=== PATIENT | female | born 1990 | race Caucasian/White ===

== ENCOUNTER 2017-12-26 10:55 | Inpatient (IN) | payer MEDICAID ==
[~2017-12-26] VITALS: Ht 157.5 cm; Wt 67.0 kg
[~2017-12-26 10:55] MED LIST: DOCU240C31 PO; IBUP-1222 PO; OXYC-302 PO
[2017-12-26] MEDS ORDERED: OXYTOCIN 30U/ 0.9% NaCL 500ML 500 ML IV ONE (11:36)
[2017-12-26] MEDS ORDERED: D5%-LACTATED RINGERS 1,000 ML IV SCH (11:36)
[2017-12-26] MEDS ORDERED: OXYTOCIN 30U/ 0.9% NaCL 500ML 500 ML IV PRN (11:36)
[2017-12-26] MEDS ORDERED: LACTATED RINGERS 1,000 ML IV SCH ×2 (11:36→19:34)
[2017-12-26] MEDS ORDERED: TERBUTALINE 1 MG/ML, 1ML IVPush PRN (12:00)
[2017-12-26] MEDS ORDERED: CALCIUM CARBONATE 500 MG TAB.CHEW PO PRN (12:00)
[2017-12-26] MEDS ORDERED: PLEASE ENTER HEIGHT AND WEIGHT MC SCH (12:00)
[2017-12-26] MEDS ORDERED: FENTANYL PF 100 MCG/2ML IVPush PRN (12:00)
[2017-12-26] MEDS ORDERED: FENTANYL PF 100 MCG/2ML IV PRN (12:00)
[2017-12-26] MEDS ORDERED: MISOPROSTOL 25 MCG TABLET VG PRN (12:00)
[2017-12-26] MEDS ORDERED: ONDANSETRON 2MG/ML, 2ML IVPush PRN ×2 (12:00→20:00)
[2017-12-26] MEDS ORDERED: MISOPROSTOL 25 MCG TABLET ONE (12:01)
[2017-12-26] MEDS ORDERED: NEWBORN KIT ONE (12:01)
[2017-12-26] MEDS ORDERED: OXYTOCIN 30U/ 0.9% NaCL 500ML 500 ML ONE ×2 (12:01→23:09)
[2017-12-26] MEDS ORDERED: MISOPROSTOL 200 MCG TABLET ONE (12:01)
[2017-12-26 12:21] LABS: BASOPHILS # (AUTO) 0.05 x10^3/uL (0-0.1); BASOPHILS % (AUTO) 1 % (0-1); EOSINOPHILS # (AUTO) 0.16 x10^3/uL (0-0.4); EOSINOPHILS % (AUTO) 2 % (1-7); LYMPHOCYTES # (AUTO) 1.29 x10^3/uL (1-3.4); LYMPHOCYTES % (AUTO) 15 % (22-44); MD NO; MEAN CORPUSCULAR HEMOGLOBIN 31.6 pg (27.0-34.8); MEAN CORPUSCULAR HGB CONC 33.7 g/dL (32.4-35.8); MEAN CORPUSCULAR VOLUME 93.7 fL (80-100); MEAN PLATELET VOLUME 9.7 fL (7.4-10.4); MONOCYTES # (AUTO) 0.44 x10^3/uL (0.2-0.8); MONOCYTES % (AUTO) 5 % (2-9); NEUTROPHILS # (AUTO) 6.72 x10^3/uL (1.8-6.8); NEUTROPHILS % (AUTO) 78 % (42-75); PLATELET COUNT 183 x10^3/uL (130-400); RED BLOOD COUNT 3.91 x10^6/uL (3.82-5.3); RED CELL DISTRIBUTION WIDTH 13.4 % (9.6-15.2)
[2017-12-26 12:36] VITALS: BP 126/79
[2017-12-26] MEDS ORDERED: FENTANYL/BUPIV./NS/PF 250 ML EPIDCONT SCH (19:34)
[2017-12-26] MEDS ORDERED: FENTANYL PF 100 MCG/2ML ONE (19:38)
[2017-12-26] MEDS ORDERED: LIDOCAINE/PF 1%, 30ML ONE (19:38)
[2017-12-26] MEDS ORDERED: LACTATED RINGERS 1,000 ML IVBOLUS PRN (20:00)
[2017-12-26] MEDS ORDERED: FENTANYL PF 500 MCG, BUPIVACAINE/PF 0.5%, 30ML 62.5 ML in SODIUM CHLORIDE 0.9% 177.5 ML EPIDCONT SCH (20:00)
[2017-12-26] MEDS ORDERED: EPHEDRINE 50 MG/ML, 1ML IVPush PRN (20:00)
[2017-12-26] MEDS ORDERED: BUPIVACAINE 0.25% ONE (20:12)
[2017-12-26] MEDS ORDERED: METHYLERGONOVINE 0.2 MG/ML IM PRN (21:00)
[2017-12-26] MEDS ORDERED: CARBOPROST TROMETHAMINE 250 MCG/ML, 1ML IM PRN (21:00)
[2017-12-26] MEDS ORDERED: OXYcodone/APAP 5/325MG TABLET PO PRN (21:00)
[2017-12-26] MEDS ORDERED: ACETAMINOPHEN 325 MG TABLET PO PRN ×2 (21:00)
[2017-12-26] MEDS ORDERED: MISOPROSTOL 200 MCG TABLET PR PRN (21:00)
[2017-12-26] MEDS ORDERED: METOCLOPRAMIDE 5 MG/ML, 2ML IV PRN (21:00)
[2017-12-26] MEDS ORDERED: ONDANSETRON 2MG/ML, 2ML IV PRN (21:00)
[2017-12-26 21:04] VITALS: BP 119/70
[2017-12-26] MEDS: OXYTOCIN 30U/ 0.9% NaCL 500ML 500 ML IV SCH (23:14)
[2017-12-26] MEDS ORDERED: IBUPROFEN 600 MG TABLET ONE (23:37)
[2017-12-26] MEDS: IBUPROFEN 600 MG TABLET PO PRN (23:40)
[2017-12-27 01:40] VITALS: BP 103/66
[2017-12-27 05:00] VITALS: BP 110/71
[2017-12-27] MEDS: OXYcodone/APAP 5/325MG TABLET PO PRN ×5 (05:09→22:15)
[2017-12-27] MEDS: DOCUSATE 100 MG CAPSULE PO PRN ×3 (05:09→22:15)
[2017-12-27] MEDS: OXYTOCIN 30U/ 0.9% NaCL 500ML 500 ML IV SCH ×2 (06:32→16:32)
[2017-12-27 06:42] LABS: BASOPHILS # (AUTO) 0.03 x10^3/uL (0-0.1); BASOPHILS % (AUTO) 0 % (0-1); EOSINOPHILS # (AUTO) 0.04 x10^3/uL (0-0.4); EOSINOPHILS % (AUTO) 0 % (1-7); LYMPHOCYTES # (AUTO) 1.15 x10^3/uL (1-3.4); LYMPHOCYTES % (AUTO) 8 % (22-44); MD NO; MEAN CORPUSCULAR VOLUME 94.3 fL (80-100); MEAN PLATELET VOLUME 9.5 fL (7.4-10.4); MONOCYTES # (AUTO) 0.71 x10^3/uL (0.2-0.8); MONOCYTES % (AUTO) 5 % (2-9); NEUTROPHILS # (AUTO) 12.58 x10^3/uL (1.8-6.8); NEUTROPHILS % (AUTO) 87 % (42-75); PLATELET COUNT 161 x10^3/uL (130-400); RED BLOOD COUNT 3.75 x10^6/uL (3.82-5.3); RED CELL DISTRIBUTION WIDTH 13.2 % (9.6-15.2)
[2017-12-27] MEDS: PRENATAL VIT/IRON/FA 1 EACH TABLET PO SCH (09:00)
[2017-12-27] MEDS: IBUPROFEN 600 MG TABLET PO PRN ×2 (09:32→17:57)
[2017-12-27 09:35] VITALS: BP 109/74
[2017-12-27 12:40] VITALS: BP 109/73
[2017-12-27 20:40] VITALS: BP 126/74
[2017-12-28] MEDS: IBUPROFEN 600 MG TABLET PO PRN ×3 (00:57→14:34)
[2017-12-28] MEDS: OXYTOCIN 30U/ 0.9% NaCL 500ML 500 ML IV SCH ×2 (02:32→12:32)
[2017-12-28] MEDS: OXYcodone/APAP 5/325MG TABLET PO PRN ×2 (05:30→14:34)
[2017-12-28] MEDS: PRENATAL VIT/IRON/FA 1 EACH TABLET PO SCH (07:28)
[2017-12-28] MEDS: DOCUSATE 100 MG CAPSULE PO PRN (07:28)
[2017-12-28 07:41] VITALS: BP 127/85
== END 2017-12-28 16:25 | disposition home or self-care (01) | DRG 806 ==
LOC: LDIP 10:55 → 2NW 12-27 01:09
PROVIDERS: ADMIT Obstetrics & Gynecology; ATTEND Obstetrics & Gynecology
PROC: 0KQM0ZZ Repair Perineum Muscle, Open Approach (ICD-10-PCS; principal; 2017-12-26)
PROC: 10E0XZZ Delivery of Products of Conception, External Approach (ICD-10-PCS; 2017-12-26)
PROC: 10907ZC Drainage of Amniotic Fluid, Therapeutic from Products of Conception, Via Natural or Artificial Opening (ICD-10-PCS; 2017-12-26)
PROC: 3E0R3BZ Introduction of Anesthetic Agent into Spinal Canal, Percutaneous Approach (ICD-10-PCS; 2017-12-26)
PROC: 00HU33Z Insertion of Infusion Device into Spinal Canal, Percutaneous Approach (ICD-10-PCS; 2017-12-26)
PROC: 3E0P7VZ Introduction of Hormone into Female Reproductive, Via Natural or Artificial Opening (ICD-10-PCS; 2017-12-26)
DX: O76 Abnormality in fetal heart rate and rhythm complicating labor and delivery (principal); O99.354 Diseases of the nervous system complicating childbirth; Z37.0 Single live birth; O70.1 Second degree perineal laceration during delivery; Z3A.40 40 weeks gestation of pregnancy; G43.909 Migraine, unspecified, not intractable, without status migrainosus
CPT/HCPCS: 36415; 85025; 86850; 86900; G0378; J3010; J3490; J2590; J7050; J7120

== ENCOUNTER 2017-12-30 16:13 | Inpatient (IN) | payer MEDICAID ==
[~2017-12-30] VITALS: Ht 157.5 cm; Wt 74.3 kg
[2017-12-30 16:54] LABS: ALANINE AMINOTRANSFERASE 48 U/L (12-78); ALBUMIN 2.7 g/dL (3.4-5.0); ANION GAP 8 mmol/L (5-15); BASOPHILS # (AUTO) 0.03 x10^3/uL (0-0.1); BASOPHILS % (AUTO) 0 % (0-1); CALCIUM 8.6 mg/dL (8.5-10.1); CHLORIDE 108 mmol/L (98-107); CREATININE 0.73 mg/dL (0.55-1.02); EOSINOPHILS # (AUTO) 0.54 x10^3/uL (0-0.4); EOSINOPHILS % (AUTO) 4 % (1-7); LYMPHOCYTES # (AUTO) 0.95 x10^3/uL (1-3.4); LYMPHOCYTES % (AUTO) 7 % (22-44); MEAN CORPUSCULAR HEMOGLOBIN 31.8 pg (27.0-34.8); MEAN CORPUSCULAR VOLUME 93.5 fL (80-100); MEAN PLATELET VOLUME 8.7 fL (7.4-10.4); MONOCYTES # (AUTO) 0.55 x10^3/uL (0.2-0.8); MONOCYTES % (AUTO) 4 % (2-9); NEUTROPHILS # (AUTO) 12.61 x10^3/uL (1.8-6.8); NEUTROPHILS % (AUTO) 86 % (42-75); PLATELET COUNT 253 x10^3/uL (130-400); RED CELL DISTRIBUTION WIDTH 13.8 % (9.6-15.2)
[2017-12-30 16:55] LABS: INTERNATIONAL NORMALIZED RATIO 0.89 (0.93-1.1); MD NO; PROTHROMBIN TIME 9.2 Seconds (9.6-11.5)
[2017-12-30 16:57] LABS: ALKALINE PHOSPHATASE 125 U/L (45-117); BILIRUBIN,TOTAL 0.3 mg/dL (0.2-1.0); TOTAL PROTEIN 7.6 g/dL (6.4-8.2)
[2017-12-30] MEDS ORDERED: SODIUM CHLORIDE 0.9% 1,000ML IVBOLUS ONE ×2 (17:30)
[2017-12-30 18:57] LABS: MICROSCOPIC INDICATED
[2017-12-30 18:59] LABS: CULTURE INDICATED? YES
[2017-12-30] MEDS ORDERED: MORPHINE SULFATE 4 MG/ML, 1ML IVPush PRN ×2 (19:30→21:30)
[2017-12-30] MEDS ORDERED: BUPIVACAINE/PF-EPI 0.5% 1:200K ONE (20:26)
[2017-12-30] MEDS ORDERED: MISOPROSTOL 200 MCG TABLET ONE (20:26)
[2017-12-30] MEDS ORDERED: OXYTOCIN 10 UNITS/ML, 1ML ONE ×3 (20:27→21:35)
[2017-12-30] MEDS ORDERED: METHYLERGONOVINE 0.2 MG/ML IM ONE (20:27)
[2017-12-30] MEDS ORDERED: SILVER NITRATE STICK TP ONE (20:27)
[2017-12-30] MEDS: AMPICILLIN/SULBACTAM 1,500 MG in SODIUM CHLORIDE 0.9% 50 ML IV SCH (20:30)
[2017-12-30] MEDS ORDERED: LACTATED RINGERS 1,000 ML IV SCH (20:30)
[2017-12-30] MEDS ORDERED: ACETAMINOPHEN 500 MG TABLET PO ONE (20:30)
[2017-12-30] MEDS ORDERED: FENTANYL PF 100 MCG/2ML ONE ×2 (20:38→21:08)
[2017-12-30] MEDS ORDERED: MIDAZOLAM 1 MG/ML, 2ML ONE (20:38)
[2017-12-30] MEDS ORDERED: DEXAMETHASONE 4 MG/ML, 1ML ONE (21:01)
[2017-12-30] MEDS ORDERED: NEOSTIGMINE 1 MG/ML, 10ML ONE (21:01)
[2017-12-30] MEDS ORDERED: ONDANSETRON 2MG/ML, 2ML ONE (21:01)
[2017-12-30] MEDS ORDERED: PROPOFOL 10 MG/ML, 20ML ONE (21:01)
[2017-12-30] MEDS ORDERED: CEFAZOLIN 1,000 MG ONE (21:01)
[2017-12-30] MEDS ORDERED: SUCCINYLCHOLINE 20 MG/ML, 10ML ONE (21:01)
[2017-12-30] MEDS ORDERED: GLYCOPYRROLATE 0.2MG/1ML, 5ML ONE (21:01)
[2017-12-30] MEDS ORDERED: ROCURONIUM 10MG/ML,5ML ONE (21:01)
[2017-12-30] MEDS ORDERED: BUPIVACAINE/PF-EPI 0.5% 1:200K INFIL ONE (21:08)
[2017-12-30] MEDS ORDERED: OXYcodone 5 MG/5 ML ORAL.SOL UDC PO PRN (21:30)
[2017-12-30] MEDS ORDERED: ACETAMINOPHEN 325 MG TABLET PO PRN (21:30)
[2017-12-30] MEDS ORDERED: MEPERIDINE/PF 25MG/0.5ML IVPush PRN (21:30)
[2017-12-30] MEDS ORDERED: ONDANSETRON ODT 8 MG PO PRN (21:30)
[2017-12-30] MEDS ORDERED: PROCHLORPERAZINE 5 MG/ML, 2ML IM PRN (21:30)
[2017-12-30] MEDS ORDERED: HYDROmorphone 1 MG/ML, 1ML IV PRN (21:30)
[2017-12-30] MEDS ORDERED: FENTANYL PF 100 MCG/2ML IV PRN (21:30)
[2017-12-30] MEDS ORDERED: ONDANSETRON 2MG/ML, 2ML IV PRN (21:30)
[2017-12-30] MEDS ORDERED: ACETAMINOPHEN 325 MG TABLET ONE (21:41)
[2017-12-30] MEDS ORDERED: ACETAMINOPHEN 650 MG/20.3 ML UDC ONE (21:41)
[2017-12-30 21:51] LABS: BASOPHILS # (AUTO) 0.02 x10^3/uL (0-0.1); BASOPHILS % (AUTO) 0 % (0-1); EOSINOPHILS # (AUTO) 0.33 x10^3/uL (0-0.4); EOSINOPHILS % (AUTO) 3 % (1-7); LYMPHOCYTES # (AUTO) 0.86 x10^3/uL (1-3.4); LYMPHOCYTES % (AUTO) 7 % (22-44); MD NO; MEAN CORPUSCULAR HEMOGLOBIN 32.2 pg (27.0-34.8); MEAN CORPUSCULAR HGB CONC 34.3 g/dL (32.4-35.8); MEAN CORPUSCULAR VOLUME 93.8 fL (80-100); MEAN PLATELET VOLUME 8.2 fL (7.4-10.4); MONOCYTES # (AUTO) 0.43 x10^3/uL (0.2-0.8); MONOCYTES % (AUTO) 4 % (2-9); NEUTROPHILS % (AUTO) 86 % (42-75); PLATELET COUNT 204 x10^3/uL (130-400); RED BLOOD COUNT 3.33 x10^6/uL (3.82-5.3); RED CELL DISTRIBUTION WIDTH 13.9 % (9.6-15.2)
[2017-12-30 22:30] LABS: INTERNATIONAL NORMALIZED RATIO 0.91 (0.93-1.1); PROTHROMBIN TIME 9.4 Seconds (9.6-11.5)
[2017-12-30 22:40] VITALS: BP 133/86
[2017-12-30] MEDS ORDERED: OXYcodone/APAP 5/325MG TABLET ONE (23:30)
[2017-12-31] MEDS: OXYTOCIN 20 UNITS in LACTATED RINGERS 1,000 ML IV SCH ×3 (00:26→20:34)
[2017-12-31] MEDS ORDERED: ONDANSETRON 2MG/ML, 2ML IV PRN (00:30)
[2017-12-31] MEDS ORDERED: OXYcodone/APAP 5/325MG TABLET PO PRN (00:30)
[2017-12-31 00:35] VITALS: BP 138/87
[2017-12-31] MEDS: AMPICILLIN/SULBACTAM 1,500 MG in SODIUM CHLORIDE 0.9% 50 ML IV SCH ×4 (02:37→20:31)
[2017-12-31 04:17] VITALS: BP 114/72
[2017-12-31] MEDS: IBUPROFEN 600 MG TABLET PO PRN ×3 (06:16→20:31)
[2017-12-31 08:00] VITALS: BP 118/70
[2017-12-31 12:10] VITALS: BP 110/66
[2017-12-31 19:50] VITALS: BP 115/72
[2018-01-01 01:30] VITALS: BP 120/77
[2018-01-01] MEDS: IBUPROFEN 600 MG TABLET PO PRN ×2 (02:26→09:49)
[2018-01-01] MEDS: AMPICILLIN/SULBACTAM 1,500 MG in SODIUM CHLORIDE 0.9% 50 ML IV SCH ×2 (02:26→09:02)
[2018-01-01 05:30] VITALS: BP 118/74
[2018-01-01 07:00] VITALS: BP 128/87
== END 2018-01-01 10:50 | disposition home or self-care (01) | DRG 769 ==
LOC: ED 18:23 → 2NW 23:56
PROVIDERS: ADMIT Obstetrics & Gynecology; ATTEND Obstetrics & Gynecology
PROC: 10D17Z9 Manual Extraction of Products of Conception, Retained, Via Natural or Artificial Opening (ICD-10-PCS; 2017-12-30)
PROC: 10D17Z9 Manual Extraction of Products of Conception, Retained, Via Natural or Artificial Opening (ICD-10-PCS; principal; 2017-12-30 20:30)
DX: O72.2 Delayed and secondary postpartum hemorrhage (principal); O86.12 Endometritis following delivery
CPT/HCPCS: 36415; 99285; J3490; 76856; 80053; 81001; 85025; 85384; 85610; 85730; 86850; 86900; 87040; 87086; 87186; 88305; 93005; G0378; J0690; J1100; J2250; J2405; J2704; J2710; J3010; J0295; J0330; J2210; J2590; J7030; J7120

== ENCOUNTER 2018-08-19 07:37 | Day surgery (SDC) | payer MEDICAID ==
[2018-08-17 16:01] LABS: BASOPHILS # (AUTO) 0.04 x10^3/uL (0-0.1); BASOPHILS % (AUTO) 1 % (0-1); EOSINOPHILS # (AUTO) 0.26 x10^3/uL (0-0.4); EOSINOPHILS % (AUTO) 3 % (1-7); LYMPHOCYTES # (AUTO) 2.02 x10^3/uL (1-3.4); LYMPHOCYTES % (AUTO) 26 % (22-44); MD NO; MEAN CORPUSCULAR HGB CONC 33.3 g/dL (32.4-35.8); MEAN PLATELET VOLUME 8.5 fL (7.4-10.4); MONOCYTES # (AUTO) 0.33 x10^3/uL (0.2-0.8); MONOCYTES % (AUTO) 4 % (2-9); NEUTROPHILS % (AUTO) 66 % (42-75); PLATELET COUNT 288 x10^3/uL (130-400); RED BLOOD COUNT 4.68 x10^6/uL (3.82-5.3); RED CELL DISTRIBUTION WIDTH 13.7 % (9.6-15.2)
[2018-08-17 16:14] LABS: ALANINE AMINOTRANSFERASE 29 U/L (12-78); ALBUMIN 4.1 g/dL (3.4-5.0); ANION GAP 6 mmol/L (5-15); CALCIUM 8.8 mg/dL (8.5-10.1); CHLORIDE 109 mmol/L (98-107)
[2018-08-17 16:19] LABS: ALKALINE PHOSPHATASE 130 U/L (45-117); BILIRUBIN,TOTAL 0.2 mg/dL (0.2-1.0); TOTAL PROTEIN 8.3 g/dL (6.4-8.2)
[~2018-08-19] VITALS: Ht 157.5 cm; Wt 61.3 kg
[~2018-08-19 07:37] MED LIST changes: +NONE PER PT
[2018-08-19] MEDS ORDERED: LACTATED RINGERS 1,000 ML IV SCH (08:17)
[2018-08-19] MEDS ORDERED: DIAZEPAM 5 MG TABLET PO ONE (08:30)
[2018-08-19] MEDS ORDERED: ACETAMINOPHEN 500 MG TABLET PO ONE (08:30)
[2018-08-19] MEDS ORDERED: SCOPOLAMINE PATCH, 1.5MG PATCH.TD72 TD ONE (08:30)
[2018-08-19] MEDS ORDERED: GABAPENTIN 300 MG CAPSULE PO ONE (08:30)
[2018-08-19 08:44] VITALS: BP 117/78
[2018-08-19] MEDS ORDERED: MIDAZOLAM 1 MG/ML, 2ML ONE (09:30)
[2018-08-19] MEDS ORDERED: FENTANYL PF 100 MCG/2ML ONE ×4 (09:30→11:00)
[2018-08-19] MEDS ORDERED: LIDOCAINE-MPF 2% ,5ML ONE (09:32)
[2018-08-19] MEDS ORDERED: PROPOFOL 10 MG/ML, 20ML ONE (09:32)
[2018-08-19] MEDS ORDERED: ROCURONIUM 10MG/ML,5ML ONE (09:32)
[2018-08-19] MEDS ORDERED: SUCCINYLCHOLINE 20 MG/ML, 10ML ONE (09:32)
[2018-08-19] MEDS ORDERED: CEFAZOLIN 1,000 MG ONE ×2 (09:36)
[2018-08-19] MEDS ORDERED: DEXAMETHASONE 4 MG/ML, 1ML ONE ×2 (09:36)
[2018-08-19] MEDS ORDERED: GLYCOPYRROLATE 0.2MG/1ML, 5ML ONE (09:42)
[2018-08-19] MEDS ORDERED: NEOSTIGMINE 1 MG/ML, 10ML ONE (09:42)
[2018-08-19] MEDS ORDERED: ONDANSETRON 2MG/ML, 2ML ONE ×2 (10:19)
[2018-08-19] MEDS ORDERED: KETOROLAC 30 MG/1 ML ONE (10:19)
[2018-08-19] MEDS ORDERED: MIDAZOLAM 1 MG/ML, 2ML IV PRN (10:30)
[2018-08-19] MEDS ORDERED: PROMETHAZINE 12.5 MG SUPP PR PRN (10:30)
[2018-08-19] MEDS ORDERED: hydrALAzine 20 MG/ML, 1ML IV PRN (10:30)
[2018-08-19] MEDS ORDERED: ONDANSETRON ODT 8 MG PO PRN (10:30)
[2018-08-19] MEDS ORDERED: ALBUTEROL SULFATE 2.5 MG/3 ML NPPB PRN (10:30)
[2018-08-19] MEDS ORDERED: HYDROmorphone 2 MG/ML, 1ML IVPush PRN ×2 (10:30→15:30)
[2018-08-19] MEDS ORDERED: EPHEDRINE 50 MG/ML, 1ML IVPush PRN (10:30)
[2018-08-19] MEDS ORDERED: LABETALOL 5MG/ML, 20ML IV PRN (10:30)
[2018-08-19] MEDS ORDERED: MORPHINE SULFATE 4 MG/ML, 1ML IVPush PRN (10:30)
[2018-08-19] MEDS ORDERED: PROMETHAZINE 25 MG/ML, 1ML IV PRN (10:30)
[2018-08-19] MEDS ORDERED: FENTANYL PF 100 MCG/2ML IV PRN (10:30)
[2018-08-19] MEDS ORDERED: ONDANSETRON 2MG/ML, 2ML IV PRN (10:30)
[2018-08-19] MEDS ORDERED: OXYcodone 5 MG/5 ML ORAL.SOL UDC ONE ×2 (11:00→11:49)
[2018-08-19] MEDS ORDERED: MEPERIDINE/PF 25MG/ML,1ML ONE (11:00)
[2018-08-19] MEDS: OXYcodone 5 MG/5 ML ORAL.SOL UDC PO PRN ×2 (11:03→11:50)
[2018-08-19] MEDS: MEPERIDINE/PF 25MG/0.5ML IVPush PRN ×2 (11:05→11:20)
[2018-08-19 15:00] LABS: BASOPHILS # (AUTO) 0.02 x10^3/uL (0-0.1); BASOPHILS % (AUTO) 0 % (0-1); EOSINOPHILS # (AUTO) 0.01 x10^3/uL (0-0.4); EOSINOPHILS % (AUTO) 0 % (1-7); LYMPHOCYTES # (AUTO) 0.66 x10^3/uL (1-3.4); LYMPHOCYTES % (AUTO) 5 % (22-44); MD NO; MEAN CORPUSCULAR HEMOGLOBIN 30.1 pg (27.0-34.8); MEAN CORPUSCULAR HGB CONC 33.6 g/dL (32.4-35.8); MEAN CORPUSCULAR VOLUME 89.8 fL (80-100); MEAN PLATELET VOLUME 8.3 fL (7.4-10.4); MONOCYTES # (AUTO) 0.09 x10^3/uL (0.2-0.8); MONOCYTES % (AUTO) 1 % (2-9); NEUTROPHILS # (AUTO) 11.99 x10^3/uL (1.8-6.8); NEUTROPHILS % (AUTO) 94 % (42-75); PLATELET COUNT 231 x10^3/uL (130-400); RED CELL DISTRIBUTION WIDTH 13.3 % (9.6-15.2)
[2018-08-19] MEDS ORDERED: KETOROLAC 30 MG/1 ML IVPush PRN (15:30)
[2018-08-19] MEDS ORDERED: MEPERIDINE/PF 50 MG/ML IM PRN (15:30)
[2018-08-19] MEDS ORDERED: OXYcodone/APAP 5/325MG TABLET PO PRN (15:30)
[2018-08-19] MEDS ORDERED: BISACODYL 10 MG SUPP PR PRN (15:30)
[2018-08-19] MEDS ORDERED: ACETAMINOPHEN 650 MG SUPP PR PRN (15:30)
[2018-08-19] MEDS ORDERED: ZOLPIDEM 5MG TABLET PO PRN (15:30)
[2018-08-19] MEDS ORDERED: morphine SULFATE 10 MG/ML, 1ML IVPush PRN (15:30)
[2018-08-19] MEDS ORDERED: SENNA/DOCUSATE TABLET PO SCH (15:30)
[2018-08-19] MEDS ORDERED: OXYcodone/APAP 5/325MG TABLET ONE (15:31)
[2018-08-19] MEDS ORDERED: SIMETHICONE 80 MG CHEW TAB PO SCH (16:00)
[2018-08-19] MEDS ORDERED: IBUPROFEN 600 MG TABLET PO SCH (16:00)
[2018-08-19] MEDS ORDERED: DOCUSATE 100 MG CAPSULE PO SCH (21:00)
== END 2018-08-19 16:30 | disposition home or self-care (01) ==
LOC: UNDOADMIN 07:37 → SDC 07:37 → ORIP 07:37 → EDSTATUS 09:30 → UNDODISIN 16:30 → SDC 16:30
PROVIDERS: ATTEND Obstetrics & Gynecology
DX: D27.1 Benign neoplasm of left ovary (principal); Z30.2 Encounter for sterilization; N85.4 Malposition of uterus; G43.909 Migraine, unspecified, not intractable, without status migrainosus; Z79.899 Other long term (current) drug therapy
CPT/HCPCS: 36415; 58720; 80053; 84703; 85025; 86850; 86900; 88302; J0330; J0690; J1100; J1885; J2175; J2250; J2405; J2704; J2710; J3010; J7120